=== PATIENT | female | born 1990 ===

== ENCOUNTER 2017-08-14 22:54 | Emergency (ER) | payer OTHER ==
[2017-08-14 23:10] VITALS: BP 128/84; PULSE 95; RESP 20; TEMP 97.7; O2SAT 100
--- NOTE | 2017-08-15 00:03 | ED PDOC ---
Lower Extremity Pain/Injury Time Seen by Provider: 08/14/17 23:16 Chief Complaint (Nursing): Lower Extremity Problem/Injury Chief Complaint (Provider): left ankle pain History Per: Patient Additional Complaint(s): 27 y/o female presents with left ankle pain x 3 hours. Patient states she was playing soccer and someone kicked the ball and it hit the inside of her left ankle, causing her to roll her ankle outward. Patient states she fell to the ground and hasn't been able to bear weight since then. Denies numbness/ weakness left lower extremity. Past Medical History Reviewed: Historical Data, Nursing Documentation, Vital Signs Vital Signs: Last Vital Signs Temp 97.7 F 08/14/17 23:07 Pulse 95 H 08/14/17 23:07 Resp 20 08/14/17 23:07 BP 128/84 08/14/17 23:07 Pulse Ox 100 08/14/17 23:07 - Medical History PMH: No Chronic Diseases - Surgical History Other surgeries: left ACL repair - Family History Family History: States: No Known Family Hx - Immunization History Hx Tetanus Toxoid Vaccination: No Hx Influenza Vaccination: No Hx Pneumococcal Vaccination: No - Home Medications Home Medications: Ambulatory Orders Medication Instructions Recorded Ibuprofen [Motrin Tab] 1 tab PO Q6 PRN #20 tab 08/15/17 - Allergies Allergies/Adverse Reactions: Allergies Allergy/AdvReac Type Severity Reaction Status Date / Time No Known Allergies Allergy Verified 08/14/17 23:07 Review of Systems ROS Statement: Except As Marked, All Systems Reviewed And Found Negative Musculoskeletal: Positive for: Leg Pain (left ankle) Physical Exam - Reviewed Nursing Documentation Reviewed: Yes Vital Signs Reviewed: Yes - Physical Exam Appears: Positive for: Well, Non-toxic, No Acute Distress Pulses-Dorsalis Pedis (L): 2+ Pulses-Dorsalis Pedis (R): 2+ Pulses-Post. Tibialis (L): 2+ Pulses-Post. Tibialis (R): 2+ Extremity: Positive for: Capillary Refill (<2 sec b/l LE), Swelling (left medial and lateral malleolus with + tenderness; limited ROM flexion/extension due to pain. Distal NV, motor intact). Negative for: Deformity Neurologic/Psych: Positive for: Alert, Oriented. Negative for: Motor/Sensory Deficits - ECG O2 Sat by Pulse Oximetry: 100 - Other Rad xray left ankle X-Ray: Viewed By Me X-Ray Interpretation: no acute findings - Progress ED Course And Treament: xray, ibuprofen Patient educated on findings, placed in air cast. Crutches given with demonstration on light weight-bearing. Advised follow up PMD/podiatry Rx ibuprofen given. Return precautions given. Disposition - Clinical Impression Clinical Impression: Ankle sprain - Patient ED Disposition Is Patient to be Admitted: No Counseled Patient/Family Regarding: Studies Performed, Diagnosis, Need For Followup, Rx Given - Disposition Referrals: Se Camilo MD [Primary Care Provider] - Podiatry Clinic [Outside] Disposition: Routine/Home Disposition Time: 01:16 Condition: IMPROVED Prescriptions: Ibuprofen [Motrin Tab] 1 tab PO Q6 PRN #20 tab PRN Reason: Pain, Moderate (4-7) Instructions: Ankle Sprain (ED), RICE Therapy (ED) Forms: [facility] (Czech), [facility] ED School/Work Excuse
--- NOTE | 2017-08-15 10:39 | RAD ---
PROCEDURE: Left Ankle Radiographs. HISTORY: Injury COMPARISON: None FINDINGS: BONES: Bone alignment and mineralization are normal. There is no acute fracture or bone destruction. JOINTS: Normal. No osteoarthritis. Ankle mortise maintained. Talar dome intact SOFT TISSUES: There is moderate lateral soft tissue swelling. OTHER FINDINGS: None. IMPRESSION: No acute fracture or dislocation. Moderate lateral soft tissue swelling.
== END 2017-08-15 01:40 | disposition home or self-care (01) ==
LOC: H.ER 22:54
DX: S93.402A Sprain of unspecified ligament of left ankle, initial encounter (principal); X50.9XXA Other and unspecified overexertion or strenuous movements or postures, initial encounter; Y92.322 Soccer field as the place of occurrence of the external cause

== ENCOUNTER 2018-03-04 12:00 | Emergency (ER) | payer OTHER ==
[2018-03-04 12:06] VITALS: BP 123/77; PULSE 64; RESP 17; TEMP 98.4; O2SAT 100
--- NOTE | 2018-03-04 12:34 | ED PDOC ---
HPI: General Adult Time Seen by Provider: 03/04/18 12:08 Chief Complaint (Provider): Ear Pain, Throat Pain History Per: Patient History/Exam Limitations: no limitations Onset/Duration Of Symptoms: Days (x1) Current Symptoms Are (Timing): Still Present Additional Complaint(s): 27 year old female presents to the ED for evaluation of bilat ear pain and throat pain. Patient states that yesterday while swimming at the beach, she felt water go into her ear and since, has had a bilateral earache, right greater than left. She now reports pain traveling down her throat with pain on swallowing. Patient notes taking Tylenol with transient relief. Otherwise, denies fever, cough, congestion, hearing changes, rash, head injury, recent travel, sick contacts. PMD: none provided Past Medical History Reviewed: Historical Data, Nursing Documentation, Vital Signs Vital Signs: Last Vital Signs Temp 98.4 F 03/04/18 12:05 Pulse 64 03/04/18 12:05 Resp 17 03/04/18 12:05 BP 123/77 03/04/18 12:05 Pulse Ox 100 03/04/18 12:40 - Medical History PMH: No Chronic Diseases - Surgical History Surgical History: No Surg Hx - Family History Family History: States: Unknown Family Hx - Social History Current smoker - smoking cessation education provided: No Alcohol: None Drugs: Denies - Immunization History Hx Tetanus Toxoid Vaccination: No Hx Influenza Vaccination: Yes Hx Pneumococcal Vaccination: No - Home Medications Home Medications: Ambulatory Orders Medication Instructions Recorded Naproxen 375 mg PO BID PRN #20 tablet 08/16/17 Naproxen 375 mg PO BID PRN #20 tablet 08/16/17 Neomycin/Polymyxin/Hydrocortis 3 drop AD TID #1 bottle 03/04/18 [Cortisporin Otic Susp] - Allergies Allergies/Adverse Reactions: Allergies Allergy/AdvReac Type Severity Reaction Status Date / Time No Known Allergies Allergy Verified 08/14/17 23:07 Review of Systems ROS Statement: Except As Marked, All Systems Reviewed And Found Negative Constitutional: Negative for: Fever ENT: Positive for: Ear Pain (bilateral), Throat Pain. Negative for: Nose Congestion, Other (hearing changes) Respiratory: Negative for: Cough Skin: Negative for: Rash Physical Exam - Reviewed Nursing Documentation Reviewed: Yes Vital Signs Reviewed: Yes - Physical Exam Appears: Positive for: No Acute Distress Skin: Positive for: Normal Color, Warm, Dry Eye Exam: Positive for: Normal appearance, EOMI, PERRL ENT: Positive for: TM Is/Are (bilateral: non-erythematous, non-bulging), Pharyngeal Erythema, Other (Left ear canal: cerumen but no impaction, no exudates, no edema; right ear canal: moderate erythema, minimal exudates, no edema; no mastoid tenderness). Negative for: Tonsillar Exudate, Tonsillar Swelling Cardiovascular/Chest: Positive for: Regular Rate, Rhythm Respiratory: Positive for: Normal Breath Sounds. Negative for: Accessory Muscle Use, Respiratory Distress Gastrointestinal/Abdominal: Positive for: Normal Exam, Soft. Negative for: Tenderness, Organomegaly Neurologic/Psych: Positive for: Alert, Oriented (x3) - ECG O2 Sat by Pulse Oximetry: 100 (RA) Pulse Ox Interpretation: Normal Medical Decision Making Medical Decision Making: Time: 1213 Initial Impression: right otitis externa, pharyngitis Initial Plan: --Rapid strep --Motrin 600mg PO 1316 Rapid strep: negative Scribe Attestation: Documented by Bella Finley, acting as a scribe for Shaun Win PA-C. Provider Scribe Attestation: All medical record entries made by the Scribe were at my direction and personally dictated by me. I have reviewed the chart and agree that the record accurately reflects my personal performance of the history, physical exam, medical decision making, and the department course for this patient. I have also personally directed, reviewed, and agree with the discharge instructions and disposition. Disposition - Clinical Impression Clinical Impression: Otitis externa - Patient ED Disposition Is Patient to be Admitted: No - Disposition Referrals: [facility] [Outside] [facility] [Outside] Disposition: Routine/Home Disposition Time: 13:17 Condition: STABLE Additional Instructions: Take Tylenol or Motrin for pain. Do frequent warm salt water gargles. Drink lots of fluids. MARTHA TRENT, thank you for letting us take care of you today. Your provider was Arthur Ruiz MD and you were treated for MAYCO EAR AND THROAT PAIN. The emergency medical care you received today was directed at your acute symptoms. If you were prescribed any medication, please fill it and take as directed. It may take several days for your symptoms to resolve. Return to the Emergency Department if your symptoms worsen, do not improve, or if you have any other problems. Please contact your doctor or call one of the physicians/clinics you have been referred to that are listed on the Patient Visit Information form that is included in your discharge packet. Bring any paperwork you were given at discharge with you along with any medications you are taking to your follow up visit. Our treatment cannot replace ongoing medical care by a primary care provider outside of the emergency department. Thank you for allowing the [facility] team to be part of your care today. If you had an X-Ray or CT scan: A Radiologist will review the ED reading if any change in treatment is needed we will contact you. If you had a blood, urine, or wound culture: It will take several days for the results, if any change in treatment is needed we will contact you. If you had an STI test: It will take 48 hours for the results. Please call after 1 week if you have not heard back. Prescriptions: Neomycin/Polymyxin/Hydrocortis [Cortisporin Otic Susp] 3 drop AD TID #1 bottle Instructions: Outer Ear Infection (DC) Forms: [facility] ED School/Work Excuse Print Language: TONGAN
== END 2018-03-04 13:28 | disposition home or self-care (01) ==
LOC: H.ER 12:00
DX: H60.92 Unspecified otitis externa, left ear (principal); J02.9 Acute pharyngitis, unspecified

== ENCOUNTER 2018-11-29 11:24 | Day surgery (SDC) | payer OTHER ==
[2018-11-11 17:18] VITALS: BMI 25.6
[2018-11-29] MEDS ORDERED: Lidocaine 1% w Epi 1:100,000 Inj ONE (14:13)
[2018-11-29 14:40] VITALS: O2SAT 100
[2018-11-29] MEDS ORDERED: Bacitracin Ointment 30 GM TUBE ONE (14:44)
--- NOTE | 2018-11-29 15:07 | PCM.SURG1 ---
Surgeon's Initial Post Op Note - Surgeon's Notes Surgeon: Dr. Mcgrath Master Welder: Dr. Hurtado PGY1 Type of Anesthesia: Local Pre-Operative Diagnosis: sebaceous cyst scalp Operative Findings: 2x2cm sebaceous cyst removed with capsule Post-Operative Diagnosis: same Operation Performed: excision of sebaceous cyst of scalp Specimen/Specimens Removed: sebaceous cyst Estimated Blood Loss: EBL {In ML}: 2 Blood Products Given: N/A Drains Used: No Drains Post-Op Condition: Good Date of Surgery/Procedure: 11/29/18 Time of Surgery/Procedure: 15:07
--- NOTE | 2018-11-29 15:10 | CP.SDSHP ---
Same Day Surgery H & P - History Proposed Procedure: excision of sebaceous cyst Pre-Op Diagnosis: soft tissue mass of the scalp - Allergies Allergies: Allergies No Known Allergies Allergy (Verified 11/29/18 12:05) - Physical Exam Vital Signs: Vital Signs 11/29/18 11/29/18 11/29/18 11:49 14:17 14:27 Temperature 98.3 F Pulse Rate 63 76 70 Respiratory 18 18 18 Rate Blood Pressure 127/63 113/69 114/63 O2 Sat by Pulse 100 100 Oximetry 11/29/18 11/29/18 14:34 14:47 Temperature 98 F Pulse Rate 79 79 Respiratory 20 20 Rate Blood Pressure 122/71 110/68 O2 Sat by Pulse 100 100 Oximetry Mental Status: Alert & Oriented x3 Neuro: WNL Heart: WNL Lungs: WNL GI: WNL Short Stay Discharge - Short Stay Discharge Admitting Diagnosis/Reason for Visit: L72.3 Disposition: HOME/ ROUTINE Follow-up: Please follow up with Dr. Mcgrath in 1-2 weeks. Call office to make appointment. Additional Instructions (Diet, Activity): Resume regular diet and any home medications. Apply bacitracin ointment to surgical site daily. Tylenol over the counter for pain relief. Ok to shower on 12/01/18. Avoid pools, baths, jacuzzis for 2 weeks until incision fully closed. Keep area clean and dry. If symptoms worsen, promptly return to nearest ED.
[2018-11-29 15:22] VITALS: BP 105/70; PULSE 67; RESP 18; TEMP 98.4
--- NOTE | 2018-12-04 00:03 | OP ---
PROCEDURE DATE: 11/29/2018 PREOPERATIVE DIAGNOSIS: Sebaceous cyst, scalp. POSTOPERATIVE DIAGNOSIS: Sebaceous cyst, scalp. PROCEDURE: Excision of sebaceous cyst of scalp. SURGEON: Soren Mcgrath MD SOCCER REFEREE: Gildardo Hurtado DO ANESTHESIA: Local 1% lidocaine with epinephrine. DESCRIPTION OF PROCEDURE: With the patient in the supine position, the scalp was prepped and draped in the usual sterile manner. A previously marked sebaceous cyst measuring approximately 2 cm was palpable in the right frontal area and the tissue surrounding the palpable mass was infiltrated with 5 mL of 1% lidocaine with epinephrine to allow hydrodissection of the mass. An incision was made into the prominence of the mass and with serial circumferential pressure, sebaceous material was delivered via the incision and then with continued pressure, the cyst wall was everted out via the incision. The cyst was removed. A single suture of 4-0 Monocryl was used to approximate the skin and the Bacitracin dressing was applied. The patient tolerated the procedure well and transferred back to day stay in stable condition. Estimated blood loss for the procedure was 2 mL. Soren Mcgrath MD MTDD
== END 2018-11-29 15:20 | disposition home or self-care (01) ==
LOC: H.OPSURG 11:24
PROVIDERS: ATTEND Specialist
DX: L72.3 Sebaceous cyst (principal); L72.12 Trichodermal cyst